=== PATIENT | female | born 1990 | race Caucasian/White ===

== ENCOUNTER 2024-09-23 18:48 | Emergency (ER) | payer BC, SELFPAY ==
[2024-09-23 18:50] VITALS: BP 137/89
[2024-09-23 20:20] VITALS: BMI 24.5
--- NOTE | 2024-09-23 22:58 | ED.SKININJ ---
HPI-Injury
General
Chief Complaint: Skin Surface Trauma
Source: patient
Exam Limitations: none
Time Seen by Provider: 09/23/24 19:36
Nursing documentation reviewed up to this point in time: agreed with
History of Present Illness-Injury
Is this injury a work related problem?: No
Is pt an associate of [facility]/[place]?: No
Initial Injury comments:
Patient states she accidentally cut self while cutting moran. Has laceration to left 5th finger. Injury occurred just [employer]
Past History
Past History
ED Past Medical History: None
Review of Systems
Review of Systems
Allergies reviewed?: Yes
All Other Systems: ROS reviewed and negative except as documented in HPI and ROS
Constitutional: Reports no symptoms
Musculoskeletal: Reports no symptoms
Skin: Reports other (Laceration to left 5th finger)
Neurological: Reports no symptoms
Psychiatric: Reports no symptoms
Skin Exam
Laceration
Left Fifth Finger:
Orientation: horizontal
Type of Laceration: simple
Any active bleeding?: no active bleeding
Distal skin color and temperature: normal-warm & good color
Normal distal neurovascular exam: Yes
Range of motion: full
Phy Exam
General Physical Exam
General Presentation: well appearing and no apparent distress
General age: appears stated age
General Skin: warm and dry
General Habitus: normal
General Mental: alert
Musculoskeletal Exam
Musculoskeletal Exam: full ROM and neuro vasc intact
Skin Exam
Skin Exam: normal color, warm/dry and no rash
Psychiatric Exam
Psychiatric Exam: normal mood/affect
Course
Vital Signs
Initial and Last Documented VS:
Initial Vital Signs
Temp Pulse Resp BP Pulse Ox
98.1 F 77 18 137/89 99
09/23/24 18:50 09/23/24 18:50 09/23/24 18:50 09/23/24 18:50 09/23/24 18:50
Last Documented Vital Signs
Temp Pulse Resp BP Pulse Ox
98.1 F 77 18 137/89 99
09/23/24 18:50 09/23/24 18:50 09/23/24 18:50 09/23/24 18:50 09/23/24 18:50
Procedures
Laceration Closure
Left Fifth Finger:
Status of Wound: clean
Description of Wound Edges: sharp
Preparation: cleaned with saline
Revision/Debridement: routine- no revision
Wound exploration: explored to base- no FB and no tendon involvement
Type of Closure: Dermabond-skin glue
*Pulse Oximetry
SaO2: 99
Oxygen Mode of Delivery: Room air
Patient hypoxic: no
*Critical Care Note
Total Time (30-74mins, 75-104mins- exclusive of procedures): Not Applicable
ED Attending Note
-
Portions of this chart may have been created with voice recognition software.� Occasional wrong word or��sound alike� substitutions may have occurred due to the inherent limitations of voice recognition software.
Discharge Plan
Departure
Patient Disposition: Home (Routine Discharge)
Date of Disposition: 09/23/24
Time of Disposition: 19:50
Patient with high blood pressure during this ER visit?: No
Condition: Good
Covid-19: Not Applicable
Discharge Problem:
Laceration of finger
Instructions: Laceration Repair With Glue (DC)
Prescriptions:
No Action
metformin 500 mg Tablet
500 mg PO TID
Referrals:
Hilton Feng MD [Family Provider, Family Practice]
Activity Restrictions/Additional Instructions:
Keep finger dry for 4-5 days. Do not remove tape strips.
Interventions
Interventions:
*Risk Screen - Suicide Last Done: 09/23/24 18:50
*General Assessment Last Done: 09/23/24 18:50
*Neglect/Abuse Screening Last Done: 09/23/24 18:50
*ED- Fall Risk Assessment Last Done: 09/23/24 18:50
*ED COVID-19 Vaccine History Last Done: 09/23/24 18:50
*Nursing Disposition Last Done: 09/23/24 20:22
ED-Skin Assessment Last Done: 09/23/24 20:21
Discharge Date and Time
Discharge Date/Time: 09/23/24 20:27
Print Language: SURINAMESE
== END 2024-09-23 20:27 | disposition home or self-care (01) ==
LOC: EMR 18:48
PROVIDERS: EMERGENCY PHYSICIAN Emergency Medicine; FAMILY PHYSICIAN Family Medicine
DX: S61.217A Laceration without foreign body of left little finger without damage to nail, initial encounter (principal); W27.8XXA Contact with other nonpowered hand tool, initial encounter
CPT/HCPCS: 12001; 99282